=== PATIENT | female | born 1985 | race Caucasian/White ===

== ENCOUNTER → 2018-11-05 | Outpatient (CLI) | payer MEDICAID, MEDICARE ==
[2018-11-05 11:03] LABS: PLATELET COUNT, AUTOMATED 382 K/uL (150-450)
== END ==
LOC: LAB 10:39
PROVIDERS: ATTEND Nurse Practitioner
DX: L63.9 Alopecia areata, unspecified (principal)
CPT/HCPCS: 36415; 82040; 82247; 82310; 82374; 82435; 82565; 82947; 84075; 84132; 84155; 84295; 84443; 84450; 84460; 84520; 85025

== ENCOUNTER 2019-02-11 20:33 | Emergency (ER) | payer MEDICARE, MEDICAID ==
[2019-02-11] MEDS ORDERED: FLUO40CA76 PO (20:49)
--- NOTE | 2019-02-11 20:53 | ER Report ---
History and Physical Time Seen By MD: 20:49 Hx. of Stated Complaint: PATIENT REPORTS CLEANING BIRD DROPPINGS FRIDAY AFTERNOON AND HAS BEEN FEELING NAUSEATED AND CHILLS AND HOT SPELLS SINCE. ALSO REPORTS MIGRAINE THAT STARTED TODAY HPI/ROS CHIEF COMPLAINT: nausea, fever/chills, headache HISTORY OF PRESENT ILLNESS: This is a 33 year old female. She was cleaning up pigeon droppings at a friends home on Friday. Was wearing a 3M mask, but no gloves. Wetting the area, scrubbing with a scrub brush. She went home, showered and cleaned up, and immediately felt nauseated. She has been nauseated now for two days. A few episodes of vomiting. She has had an occasional cough since then as well. Feeling some chills and feeling hot today. Developed a migraine headache this afternoon. She does have a history of headaches and this feels similar. No dysuria or frequency of urination. She has no diarrhea or constipation. No skin rashes. No sick contacts. She does not think she has had any bad food exposures or food poisoning. REVIEW OF SYSTEMS: Constitutional: No fever or chills. Eyes: No discharge. No vision changes. ENT: No sore throat. No congestion. Cardiovascular: No chest pain. No palpitations. Respiratory: As above. Gastrointestinal: No abdominal pain. Genitourinary: As above. Musculoskeletal: No muscle pains. Nor cramping. Skin: No rashes. Neurological: As above. Allergies: Coded Allergies: No Known Drug Allergies (Unverified , 02/11/19) Home Meds Active Scripts Ondansetron 4 Mg Odt (ONDANSETRON 4 MG ODT) 4 Mg Tab.rapdis, 4 MG PO Q6H PRN for NAUSEA/VOMITING, #20 TAB 0 Refills Prov:REJI THURSTON MD 02/11/19 Reported Medications Fluoxetine Hcl (PROZAC) 40 Mg Capsule, 90 MG PO QWK, CAPSULE 02/11/19 Reviewed Nurses Notes: Yes Constitutional Vital Sign - Last 24 Hours 02/11/19 02/11/19 02/11/19 02/11/19 20:36 20:41 21:00 21:10 Temp 98.3 Pulse 60 Resp 15 B/P (MAP) 131/73 (92) 131/73 116/71 (86) 124/72 (89) Pulse Ox 95 O2 Delivery Room Air 02/11/19 02/11/19 02/11/19 21:30 21:33 21:38 Pulse 59 60 B/P (MAP) 117/60 (79) Pulse Ox 95 95 Intake and Output 02/11/19 02/11/19 02/12/19 15:04 23:04 07:04 Intake Total 1000 ml Balance 1000 ml Physical Exam General Appearance: The patient is alert. No acute distress. Eyes: Pupils are equal, round. Reactive to light. No pallor, injection or icterus. Extraocular movements are intact. ENT: Mucous membranes are moist. Normal oral mucosa. Posterior oropharynx is normal. Neck: Supple and non tender. Respiratory: Lungs are clear to auscultation. Cardiovascular: Regular rate and rhythm. No murmurs, gallops or rubs. Normal capillary refill. No edema. Gastrointestinal: Abdomen is soft and non tender. Nondistended. Normal active bowel sounds. No CVA tenderness. Neurological: Alert and oriented x3. No focal neurologic deficits Skin: Warm and dry. Musculoskeletal: Extremities are nontender. No neck or back pain. DIFFERENTIAL DIAGNOSIS: After history and physical exam, differential diagnosis was considered for patient with fever/chills, although afebrile now, with nausea and now with headache as well, with possible exposure of bird droppings as noted. Medical Decision Making Data Points Result Diagram: 02/11/19204202/11/192042 Laboratory Hematology Test 02/11/19 20:43 White Blood Count 11.2 k/uL (4.5-11.0) H Red Blood Count 4.74 M/uL (4.17-5.56) Hemoglobin 13.7 g/dL (12.0-16.0) Hematocrit 41.5 % (34.0-47.0) Mean Corpuscular Volume 87.6 fL (80.0-96.0) Mean Corpuscular Hemoglobin 28.9 pg (26.0-33.0) Mean Corpuscular Hemoglobin Concent 33.0 g/dL (32.0-36.0) Red Cell Distribution Width 12.2 % (11.5-14.5) Platelet Count 396 K/uL (150-450) Mean Platelet Volume 9.6 fL (7.2-11.1) Neutrophils (%) (Auto) 62.9 % (39.4-72.5) Lymphocytes (%) (Auto) 29.0 % (17.6-49.6) Monocytes (%) (Auto) 6.5 % (4.1-12.4) Eosinophils (%) (Auto) 0.9 % (0.4-6.7) Basophils (%) (Auto) 0.5 % (0.3-1.4) Nucleated RBC Relative Count (auto) 0.0 /100WBC Neutrophils # (Auto) 7.1 K/uL (2.0-7.4) Lymphocytes # (Auto) 3.3 K/uL (1.3-3.6) Monocytes # (Auto) 0.7 K/uL (0.3-1.0) Eosinophils # (Auto) 0.1 K/uL (0.0-0.5) Basophils # (Auto) 0.1 K/uL (0.0-0.1) Nucleated RBC Absolute Count (auto) 0.00 K/uL Erythrocyte Sedimentation Rate 8 mm/HOUR (0-20) Chemistry Test 02/11/19 20:43 Sodium Level 136 mmol/L (137-145) Potassium Level 3.3 mmol/L (3.5-5.0) Chloride Level 103 mmol/L (98-107) Carbon Dioxide Level 24 mmol/L (22-31) Blood Urea Nitrogen 12 mg/dl (7-18) Creatinine 0.70 mg/dl (0.52-1.04) Glomerular Filtration Rate Calc > 60.0 Random Glucose 98 mg/dl (75-110) Calcium Level 9.0 mg/dl (8.4-10.2) Total Bilirubin 0.4 mg/dl (0.2-1.3) Aspartate Amino Transf (AST/SGOT) 26 U/L (0-35) Alanine Aminotransferase (ALT/SGPT) 28 U/L (0-56) Alkaline Phosphatase 83 U/L (0-126) C-Reactive Protein < 0.5 mg/dl (<1.0) Total Protein 7.5 g/dl (6.3-8.2) Albumin 4.2 g/dl (3.5-5.0) Urinalysis Test 02/11/19 20:35 Urine Color Straw Urine Clarity Clear Urine pH 7.0 pH (4.8-9.5) Urine Specific [place] 1.012 Urine Protein Negative mg/dL (NEGATIVE) Urine Glucose (UA) Negative mg/dL (NEGATIVE) Urine Ketones Negative mg/dL (NEGATIVE) Urine Blood Negative (NEGATIVE) Urine Nitrite Negative (NEGATIVE) Urine Bilirubin Negative (NEGATIVE) Urine Urobilinogen Negative mg/dL (0.2-1.9) Urine Leukocyte Esterase Negative (NEGATIVE) Urine RBC None /HPF (0-2/HPF) Urine WBC 1 /HPF (0-5/HPF) Urine Squamous Epithelial Cells Few /LPF (</=FEW) Urine Bacteria Few /HPF (NONE-FEW) Urine Mucus None /HPF (NONE-FEW) EKG/Imaging Imaging EXAMINATION: Chest 2 Views HISTORY: Fever, cough, nausea COMPARISON: None. FINDINGS: The lungs are clear. No focal consolidation or pleural fluid. No pneumothorax. Normal cardiomediastinal silhouette, with normal heart size and pulmonary vascularity. No acute osseous findings. Mild thoracolumbar scoliosis. IMPRESSION: No evidence of acute cardiopulmonary disease. Report Dictated By: Sriram Huggins MD at 02/11/2019 10:01 PM ED Course/Re-evaluation Clinical Indication for ER IV: Hydration, IV Access ED Course Patient was given IV Phenergan, Benadryl, and fluids. She had some improvement, but then had some recurrent nausea. Zofran was given for this. She is feeling alot better now. Labs and imaging as noted. Recommended rest and fluids for the next 24 hours, but nothing dangerous noted on workup. Decision to Disposition Date: Feb 11, 2019 Decision to Disposition Time: 23:35 Depart Departure Latest Vital Signs Vital Signs Date Time Temp Pulse Resp B/P (MAP) Pulse Ox O2 Delivery O2 Flow Rate FiO2 02/11/19 21:38 60 95 02/11/19 21:30 117/60 (79) 02/11/19 20:41 98.3 15 Room Air Impression: Primary Impression: Viral syndrome Condition: Improved Disposition: HOME OR SELF-CARE New Scripts Ondansetron 4 Mg Odt (ONDANSETRON 4 MG ODT) 4 Mg Tab.rapdis 4 MG PO Q6H PRN for NAUSEA/VOMITING, #20 TAB 0 Refills Prov: REJI THURSTON MD 02/11/19 Patient Instructions: Acute Nausea and Vomiting (ED) Additional Instructions: We suspect that your symptoms are due to a viral syndrome. We cannot rule out a problem caused by the exposure to the bird droppings, but do not see anything worrisome at this time in the labs. Take Zofran 4mg, one every 6 hours as needed for nausea and vomiting. Rest and increase fluid intake. Note to be off work tomorrow. Return to the ER for worsening symptoms. REJI THURSTON MD Feb 11, 2019 20:53
[2019-02-11] MEDS ORDERED: diphenhydrAMINE 50 MG/ML VIAL IVP ONE (21:05)
[2019-02-11] MEDS ORDERED: PROMETHAZINE 25 MG/ML 1 ML AMP IVP ONE (21:05)
[2019-02-11] MEDS ORDERED: NS(*) 0.9% 1000 ML BAG 1,000 ML IV ONE (21:05)
[2019-02-11 21:26] LABS: PLATELET COUNT, AUTOMATED 396 K/uL (150-450)
[2019-02-11 21:30] VITALS: BP 117/60
--- NOTE | 2019-02-11 22:12 | RADIOLOGY IMAGING REPORT ---
FACILITY: [facility] - [place] PATIENT NAME: Dorene Chan : 1985 MR: [id number] V: [id number] EXAM DATE: ORDERING PHYSICIAN: REJI THURSTON TECHNOLOGIST: Location: [facility] Patient: Dorene Chan : 1985 Visit/Account:[id number] Date of Sevice: 02/11/2019 EXAMINATION: Chest 2 Views HISTORY: Fever, cough, nausea COMPARISON: None. FINDINGS: The lungs are clear. No focal consolidation or pleural fluid. No pneumothorax. Normal cardiomediastinal silhouette, with normal heart size and pulmonary vascularity. No acute osseous findings. Mild thoracolumbar scoliosis. IMPRESSION: No evidence of acute cardiopulmonary disease. Report Dictated By: Sriram Huggins MD at 02/11/2019 10:01 PM Report E-Signed By: Sriram Huggins MD at 02/11/2019 10:04 PM WSN:[id number]
[2019-02-11] MEDS ORDERED: ONDANSETRON 4 MG/2 ML VIAL IVP ONE (22:45)
[2019-02-11] MEDS ORDERED: ONDANSETRON 4 MG ODT TH SL ONE (23:40)
[2019-02-11] MEDS ORDERED: ONDA4TAB9 PO (23:42)
== END 2019-02-11 23:55 | disposition home or self-care (01) ==
LOC: ER 20:51
DX: B34.9 Viral infection, unspecified (principal)
CPT/HCPCS: 81001; 85025; 85651; 86140; 96374; 96375; 99284; J1200; J2405; J2550; J7030; 71046; 82040; 82247; 82310; 82374; 82435; 82565; 82947; 84075; 84132; 84155; 84295; 84450; 84460; 84520; S0119